=== PATIENT | male | born 1965 | race African-American/Black ===

== ENCOUNTER 2018-03-11 19:23 | Emergency (ER) | payer OTHER ==
[~2018-03-11] VITALS: Ht 170.2 cm; Wt 138.3 kg
[~2018-03-11 19:23] MED LIST: ALLOPURINOL300 M1 PO; AMLODIPINE BESY10 M1 PO; ATORVASTATIN CA10 M1 PO; AZITHROMYCIN250 M1 PO; CLONIDINE1 EAC1 TOP; COLCHICINE0.6 M2 PO; FUROSEMIDE40 M1 PO; GLIPIZIDE ER5 M1 PO; LOSARTAN POTAS100 M1 PO; METFORMIN HCL1000 M2 PO; METOPROLOL SUC100 M2 PO; TESSALON PERLE100 M1 PO; VENTOLIN HFA18 GM INH
--- NOTE | 2018-03-11 20:26 | ED CARDIAC/CP/PALPITATIONS ---
See Addendum History of Present Illness General Chief Complaint: General Adult Stated Complaint: " WET COUGH,FEVER X4DAYS" Source: patient Exam Limitations: no limitations Vital Signs & Intake/Output Vital Signs & Intake/Output Vital Signs Date Time Temp Pulse Resp B/P B/P Pulse O2 O2 Flow FiO2 Mean Ox Delivery Rate 03/11 1938 98.3 79 18 150/77 95 Room Air Allergies Coded Allergies: No Known Allergies (12/19/15) Reconcile Medications Albuterol Sulfate (Ventolin Hfa) 18 GM HFA.AER.AD 2 PUF INH Q4-6 PRN PRN WHEEZING/SHORTNESS OF BREATH Allopurinol 300 MG TABLET 1 TAB PO DAILY GOUT (Reported) Amlodipine Besylate 10 MG TABLET 1 TAB PO DAILY HEART (Reported) Atorvastatin Calcium 10 MG TABLET 1 TAB PO DAILY CHOLESTEROL (Reported) Azithromycin 250 MG TABLET 1 DP PO AD lung infection 2 the first day followed by 1 for days 2-5 Benzonatate (Tessalon Perle) 100 MG CAPSULE 1 CAP PO TID PRN COUGH Clonidine 1 EACH PATCH.TDWK 1 PAT TOP QW UNKNOWN (Reported) Colchicine 0.6 MG TABLET 1 TAB PO EOD GOUT (Reported) Furosemide 40 MG TABLET 1 TAB PO DAILY WATER PILL (Reported) Glipizide (Glipizide ER) 5 MG TAB.ER.24 1 TAB PO DAILY DIABETES (Reported) Losartan Potassium 100 MG TABLET 1 TAB PO DAILY HEART (Reported) Metformin HCl (Metformin HCl ER) 1,000 MG TAB.ER.24 1 TAB PO DAILY DIABETES ( Reported) Metoprolol Succinate 100 MG TAB.ER.24H 1 TAB PO DAILY HEART (Reported) Triage Note: PT FROM HOME C/O OF WET PRODUCTIVE COUGH WITH FROTHY TO YELLOW SPUTUM PER PT FOR THE PAST 4X DAYS. PT DENIES ANY OTHER COMPLAINTS AT THIS TIME. Triage Nurses Notes Reviewed? yes HPI: 52-year-old -[place] male with history of A. fib, sleep apnea syndrome, hypertension, borderline diabetes, reports a worsening "wet" cough over the past 4 days with a somewhat worsening pedal edema and dyspnea on exertion. He reports having been diagnosed with atrial fibrillation approximately 6 months ago and was cardioverted and placed on Eliquis but then reports that he has gone back into atrial fibrillation subsequently. He is not sure of any weight gain but he believes he has gained some weight over the past few weeks. He denies any chest pain, fever, chills, hemoptysis, back pain, dizziness, palpitations, use of stimulants, smoking or heavy alcohol use. He reports he has been compliant on his medications as well as using his CPAP mask at night. He has attempted Mucinex, TheraFlu and other avhk-kra-[id number] cough preparations without improvement in his cough which is productive of a clear to white sputum. He reports that he has not been admitted to this hospital before but has had a negative echocardiogram and stress test within the past 6 months. He also reports a history of a "enlarged heart". Past History Travel History Traveled to [place] past 21 day No Medical History Any Pertinent Medical History? see below for history Cardiovascular: hypertension, cardiomegaly Endocrine: diabetes Surgical History Surgical History: non-contributory Psychosocial History What is your primary language Persian Tobacco Use: Quit >30 days ago Family History Hx Contributory? No Review of Systems Review of Systems Constitutional: Reports: see HPI. Denies: no symptoms, chills, diaphoresis, fever, malaise, weakness, unexplained weight loss. Physical Exam Physical Exam General Appearance: alert, mild distress, obese Head: atraumatic, normal appearance Eyes: Bilateral: normal appearance, PERRL, EOMI. Ears, Nose, Throat: normal pharynx, nasal congestion Neck: normal inspection, supple, full range of motion, JVD, 2 cm @ 90 degrees Respiratory: chest non-tender, wheezing, respiratory distress (mild) Cardiovascular: irregularly irregular (tachycardic) Peripheral Pulses: 4+ carotid (R), 4+ carotid (L), 4+ radial (R), 4+ radial (L), 4+ tibialis posterior (R), 4+ tibialis posterior (L), 4+ dorsalis pedis (R), 4+ dorsalis pedis (L) Gastrointestinal: normal bowel sounds, soft, non-tender, no organomegaly, obese Back: normal inspection Extremities: 3+ pitting edema to knees bilaterally. No Homans' sign or calf tenderness. Neurologic/Psych: no motor/sensory deficits, awake, alert, oriented x 3 Skin: intact, warm/dry Core Measures ACS in differential dx? Yes CVA/TIA Diagnosis No Sepsis Present: No Sepsis Focused Exam Completed? No Progress Differential Diagnosis: AMI, atrial fibrillation, CHF/pulm edema, hyperventilation, myocarditis, pericarditis, pneumonia Plan of Care: Orders Procedure Date/time Status Saline Lock 03/11 2017 Active Telemetry/House Mover Supervisor 03/11 2017 Active URINE DRUG SCREEN FOR ER ONLY 03/11 2017 Complete THYROID STIMULATING HORMONE 03/11 2017 Complete TROPONIN LEVEL 03/11 2017 Complete PARTIAL THROMBOPLASTIN TIME 03/11 2017 Complete PROTHROMBIN TIME 03/11 2017 Complete MAGNESIUM 03/11 2017 Complete COMPREHENSIVE METABOLIC PANEL 03/11 2017 Complete CBC WITHOUT DIFFERENTIAL 03/11 2017 Complete EKG 03/11 2017 Active Laboratory Tests 03/11/182054: Urine Opiates Screen < 100, Methadone Screen 63, Barbiturate Screen < 60, Ur Phencyclidine Scrn 6.10, Amphetamines Screen 118, U Benzodiazepines Scrn < 85, Urine Cocaine Screen < 50, Urine Cannabis Screen < 5.00 03/11/182044: Anion Gap 7, Estimated GFR 58 L, BUN/Creatinine Ratio 16.2, Glucose 113 H, Calcium 9.1, Magnesium 2.2, Total Bilirubin 0.9, AST 16 L, ALT 26, Alkaline Phosphatase 51, Troponin I 0.02, Total Protein 7.0, Albumin 4.0, Globulin 3.0, Albumin/Globulin Ratio 1.3, TSH 0.803, PT 13.2 H, INR 1.21 H, APTT 35, CBC w Diff NO MAN DIFF REQ, RBC 5.19, MCV 84.2, MCH 27.6, MCHC 32.8 L, RDW 15.5 H, MPV 8.2, Gran % 67.2, Lymphocytes % 15.4 L, Monocytes % 13.1 H, Eosinophils % 4.0, Basophils % 0.3, Absolute Granulocytes 4.7, Absolute Lymphocytes 1.1 L, Absolute Monocytes 0.9 H, Absolute Eosinophils 0.3, Absolute Basophils 0 Initial ED EKG: rate (98), AFIB, nonspecific ST T wave chg Comments: Patient was feeling somewhat improved after a DuoNeb treatment. There is no signs of CHF, ACS, or PE. Plan will be discharged on his current albuterol inhaler at home and will offer a short course of steroids given his previous history of bronchospasm and bronchitis. Departure Departure Time of Disposition: 2213 Disposition: HOME OR SELF CARE Condition: Stable Clinical Impression Primary Impression: Acute bronchospasm Secondary Impressions: Chronic atrial fibrillation Referrals: Aamir PRIETO,Flory Oconnell (PCP/Family) Additional Instructions: Please take prednisone 60 mg daily for 5 days. Use your inhaler as needed. Please follow-up with Dr. Rutledge this week. Departure Forms: Customer Survey General Discharge Information Critical Care Note Critical Care Note Critical Care Time: non-applicable
[2018-03-11 20:55] LABS: ABSOLUTE BASOPHIL COUNT 0 /CUMM (0.0-0.2); ABSOLUTE EOSINOPHIL COUNT 0.3 /CUMM (0.0-0.7); ABSOLUTE GRANULOCYTE CT 4.7 /CUMM (1.4-6.5); ABSOLUTE LYMPH COUNT 1.1 /CUMM (1.2-3.4); ABSOLUTE MONOCYTE COUNT 0.9 /CUMM (0.10-0.60); BASOPHIL % 0.3 % (0.0-2.0); GRANULOCYTE % 67.2 % (42.2-75.2); HEMATOCRIT 43.7 % (42-52); MEAN CORPUSCULAR HGB 27.6 PG (27.0-31.0); MEAN CORPUSCULAR HGB CONC 32.8 G/DL (33.0-37.0); MEAN CORPUSCULAR VOLUME 84.2 FL (80.0-94.0); MEAN PLATELET VOLUME 8.2 FL (7.4-10.4); PLATELET COUNT 245 /CUMM (130-400); RBC DISTRIBUTION WIDTH 15.5 % (11.5-14.5); RED BLOOD CELL CT 5.19 /CUMM (4.70-6.10)
[2018-03-11 21:09] LABS: PT 13.2 SEC (9.4-12.5); PTT 35 SEC (25-37)
--- NOTE | 2018-03-11 21:23 | RADIOLOGY REPORT ---
EXAMINATION: XR CHEST CLINICAL INFORMATION: Cough. COMPARISON: Chest radiography 12/19/2015. TECHNIQUE: 2 views of the chest were obtained. FINDINGS: The lungs are well expanded. There is mild peribronchial thickening. No convincing lobar consolidation. No pneumothorax or pleural effusion. The cardiac contour is enlarged. No acute osseous abnormalities. IMPRESSION: Peribronchial thickening may reflect small airways inflammation. No convincing evidence of pneumonia. Prominence of the cardiac contour.
[2018-03-11 22:50] VITALS: BP 130/88
== END 2018-03-11 22:47 ==
LOC: ERH 19:23
PROVIDERS: Emergency Medicine
DX: J98.01 Acute bronchospasm (principal); I48.2 Chronic atrial fibrillation; R60.0 Localized edema; R06.00 Dyspnea, unspecified; I10 Essential (primary) hypertension; E11.9 Type 2 diabetes mellitus without complications; Z87.891 Personal history of nicotine dependence
CPT/HCPCS: 1263; 71046; 80307; 93005; 93010